=== PATIENT | female | born 1990 | race Caucasian/White ===

== ENCOUNTER 2016-08-07 02:54 | Inpatient (IN) | payer OTHER ==
[2016-08-07] VITALS (21 sets, daily range): BP systolic 103–167; BP diastolic 51–87
[~2016-08-07] VITALS: Ht 162.6 cm; Wt 75.0 kg
[2016-08-07] MEDS ORDERED: LR 1,000 ML IV SCH (03:20)
[2016-08-07] MEDS ORDERED: LACTATED RINGER'S 1000 ML IV STA (03:20)
[2016-08-07] MEDS ORDERED: FENTANYL 2MCG/ML ROPIVACAINE 0.2% NACL 250 ML CADD As Ordered ONE (03:52)
[2016-08-07 04:08] LABS: MEAN CORPUSCULAR HEMOGLOBIN 26.7 pg (27.0-33.0); MEAN CORPUSCULAR VOLUME 80.9 fl (80.0-96.0); RED CELL DISTRIBUTION WIDTH 14.1 % (11.5-14.5); WHITE BLOOD COUNT 15.2 K/mm3 (4.0-10.0)
[2016-08-07] MEDS ORDERED: PREN1TAB11 PO (04:32)
[2016-08-07] MEDS ORDERED: NALOXONE INJ 0.4 MG/1 ML VIAL (J2310) IV PRN (05:30)
[2016-08-07] MEDS ORDERED: ONDANSETRON 4MG/2ML VIAL (J2405) IV PRN (05:30)
[2016-08-07] MEDS ORDERED: diphenhydrAMINE INJ 50MG/ML VIAL (J1200) IV PRN (05:30)
[2016-08-07] MEDS ORDERED: REFRIGERATOR IV KEYS XX PRN (05:30)
[2016-08-07] MEDS ORDERED: LACTATED RINGER'S 1000 ML IV PRN (05:30)
[2016-08-07] MEDS ORDERED: EPIDURAL/PCA KEYS XX PRN (05:30)
[2016-08-07] MEDS ORDERED: EPIDURAL COMMENT XX SCH (05:30)
[2016-08-07] MEDS ORDERED: FENTANYL/ROPIVACAINE/NACL CADD 250 ML EPIDURAL SCH (05:30)
[2016-08-07] MEDS ORDERED: ePHEDrine SULFATE 25 MG/5 ML(5MG/ML) SYRINGE IV PRN (05:30)
[2016-08-07] MEDS ORDERED: OXYTOCIN 30 UNITS IN 0.9% NaCl 500ML IV BAG (J2590) As Ordered ONE (09:25)
--- NOTE | 2016-08-07 09:45 | IPNPDOC ---
Text Note Date of Service The patient was seen on 08/07/16 at 09:43. NOTE SBAR from Dr Ramirez at 0830. SROM, uncomplicated and admission thus far. Chart reviewed. VSS NST Cat 1 with mod leon Cx C/C/+2/OA a/p: Start pushing. Sessions Marichuy KNOWLES, I+O VSMarichuy I+O Laboratory Tests 08/07/16 03:34 Red Blood Count 4.47, Mean Corpuscular Volume 80.9, Mean Corpuscular Hemoglobin 26.7 L, Mean Corpuscular Hemoglobin Concent 33.0, Red Cell Distribution Width 14.1 Vital Signs Date Time Temp Pulse Resp B/P Pulse Ox O2 Delivery O2 Flow Rate FiO2 08/07/16 09:02 98.0 78 18 120/56 Non-Rebreather 08/07/16 05:27 100 SESSIONS,ED Allan MD Aug 07, 2016 09:45
[2016-08-07] MEDS ORDERED: OXYTOCIN DRIP 30 UNITS in APPROPRIATE DILUENT 1 EA IV SCH (13:12)
[2016-08-07] MEDS ORDERED: MEASLES,MUMPS,RUBELLA VACCINE INJ (MMR-II) (90707) SC SCH (13:15)
[2016-08-07] MEDS ORDERED: RHOGAM 300 MCG (1500 IU) INJ (J2790) IM SCH (13:15)
[2016-08-07] MEDS ORDERED: METOCLOPRAMIDE INJ 10MG/2ML VIAL (J2765) IV PRN (13:15)
[2016-08-07] MEDS ORDERED: DIBUCAINE 1% OINTMENT 30GM TOP PRN (13:15)
--- NOTE | 2016-08-07 13:33 | DNPDOC ---
Delivery Note Delivery Note DATE OF DELIVERY: Aug 07, 2016 at 03:09 PREDELIVERY DIAGNOSIS: [38]-[3]/7 weeks' gestation and labor. POST DELIVERY DIAGNOSIS: Delivered. PROCEDURE: [Spontaneous vaginal delivery after 2 vacuum pop-offs (vacuum failed) ] [employer] OPERATOR: [Sessions] ANESTHESIA: [epidural]. ESTIMATED BLOOD LOSS: [300] mL. FINDINGS: [7] pound [3] ounce [female] , Score [8]/[9], nuchal cord times [2]. DELIVERY SUMMARY: Patient was admitted to labor and delivery for SROM and progressed without complication to C/C/+2 and pushed for 3 hours with mom- confessed exhaustion. Station +3-+4 with pushing. Epidural working well. D/ W her options of continued pushing for 1 more hour vs outlet vacuum with risks of laceration, lacs/bruising of the head, failure and possible need for and she elected for vacuum. Slight asynclitism noted and I believed the to be OP but was unsure. Vacuum placed midsagitally 2 cm from the fontanelle and excellent descent with each set of ctx's however a pop- off noted at the end of first and second set of pushes. Vacuum abandoned. FHT reassuring throughout. ML Episiotomy cut, very short perineal body. I tried to do a modified Ritgen but there was no room for me to get my fingers inbetween the post vtx and the bony sacrum. Cont'd to push and del'd the vtx, noted to be straight OP. No delay of the shoulders. To abdomen with spont cry and good tone. Cord clamped X2 and cut by FOB. Chignon c/w OP baby and slightly off-center (asynclitic). Epis repaired in standard fashion with 3-0 vicryl, no extension, rectal sphincter intact, but the entire skin of the perineum involved down to the anal verge. Good cosmesis and hemostasis. Sessions MD SCHROEDER,ED Allan MD Aug 07, 2016 13:33
[2016-08-07] MEDS: IBUPROFEN 800 MG TAB PO PRN ×2 (13:48→22:33)
[2016-08-07] MEDS: ACETAMINOPHEN TAB 650MG DOSE (2X325MG) PO PRN (19:46)
[2016-08-07] MEDS: DOCUSATE SODIUM 100 MG CAP PO SCH (19:46)
[2016-08-08] MEDS: IBUPROFEN 800 MG TAB PO PRN ×2 (06:12→14:39)
[2016-08-08 06:23] VITALS: BP 136/74
--- NOTE | 2016-08-08 07:42 | IPNPDOC ---
Text Note Date of Service The patient was seen on 08/08/16 at 07:41. NOTE PPD1 Prog note Pt states feeling well, breast feeding challenging but they're doing OK, pain controlled. Bonding. Voiding and eating and ambulatory. VSS CTAB RRR Ut at U-2, firm LE no CCE a/p: Doing well, cont routine PP care. Sessions Marichuy KNOWLES, I+O VSMarichuy I+O Vital Signs Date Time Temp Pulse Resp B/P Pulse Ox O2 Delivery O2 Flow Rate FiO2 08/08/16 06:23 97.2 71 18 136/74 08/07/16 14:38 Room Air 08/07/16 05:27 100 I&O- Last 24 Hours up to 6 AM 08/08/16 06:00 Intake Total 1000 ml Output Total 1350 ml Balance -350 ml ALEXANDRE,ED Allan MD Aug 08, 2016 07:42
[2016-08-08] MEDS: PRENATAL VITAMIN TAB PO SCH (08:02)
[2016-08-08] MEDS: DOCUSATE SODIUM 100 MG CAP PO SCH ×2 (08:02→20:29)
[2016-08-08] MEDS: ACETAMINOPHEN TAB 650MG DOSE (2X325MG) PO PRN ×2 (08:13→20:30)
[2016-08-08 18:00] VITALS: BP 118/65
[2016-08-09 05:44] VITALS: BP 102/55
--- NOTE | 2016-08-09 06:16 | IPNPDOC ---
Text Note Date of Service The patient was seen on 08/09/16 at 06:16. NOTE PPD2 Prog note States feeling well. No complaints. Pain controlled. Breast feeding well. VB slowing. Ambulatory and voiding well. No N/V/CP/SOB/LP. VSS Ut at U-2/firm LE no CCE a/p: Doing well. d/c today, see d/c summary Sessions VS,Marichuy, I+O VSMarichuy, I+O Vital Signs Date Time Temp Pulse Resp B/P Pulse Ox O2 Delivery O2 Flow Rate FiO2 08/09/16 05:44 97.0 77 16 102/55 08/07/16 14:38 Room Air 08/07/16 05:27 100 SESSIONS,ED Allan MD Aug 09, 2016 06:16
--- NOTE | 2016-08-09 06:22 | DS.PDOC ---
Discharge Summary General Date of Admission Aug 07, 2016 at 03:09 Date of Discharge Discharge Summary COMPLICATIONS/CHIEF COMPLAINT: LABOR ADMISSION DIAGNOSES: 1. .SROM, labor DISCHARGE DIAGNOSES: 1. JERI, after failed vacuum HOSPITAL COURSE: Patient was admitted for SROM and progressed to complete and pushed for >3 hours. A vacuum was placed with her consent and good descent noted but 2 pop-offs occurred and the vacuum was abandoned. Delivered the female in good shape in O.P. presentation. Episiotomy with no extension also needed. Uncomplicated delivery and course. DISCHARGE MEDICATIONS: Motrin, Tylenol, Colace, Lanolin, Nor QDay PHYSICAL EXAMINATION ON DISCHARGE: see prog note from this AM VITAL SIGNS: Please see below. LABORATORY DATA: Please see below. DISCHARGE CONDITION: stable DISPOSITION: to home ACTIVITY: Nothing in the vagina for 6 weeks. Regular diet. DISCHARGE PLAN AND INSTRUCTIONS: follow up at 6 week visit Sessions Vital Signs/I&Os Vital Signs Date Time Temp Pulse Resp B/P Pulse Ox O2 Delivery O2 Flow Rate FiO2 08/09/16 05:44 97.0 77 16 102/55 08/07/16 14:38 Room Air 08/07/16 05:27 100 Medications Miscellaneous Medications ( Vitamin 27-0.8 mg) 1 Tab Tab 1 TAB PO Allergies Coded Allergies: No Known Allergies (Unverified , 08/07/16) SESSIONS,ED Allan MD Aug 09, 2016 06:22
[2016-08-09] MEDS ORDERED: COLA100C PO (07:29)
[2016-08-09] MEDS ORDERED: IBUP-1114 PO (07:31)
[2016-08-09] MEDS ORDERED: ACET50TA PO (07:31)
[2016-08-09] MEDS: DOCUSATE SODIUM 100 MG CAP PO SCH (09:09)
[2016-08-09] MEDS: IBUPROFEN 800 MG TAB PO PRN (09:09)
[2016-08-09] MEDS: PRENATAL VITAMIN TAB PO SCH (09:09)
== END 2016-08-09 13:00 | disposition home or self-care (01) | DRG 775 ==
LOC: M LDO 02:54 → M LDI 03:09 → M OBS 15:42
PROVIDERS: ADMIT Obstetrics & Gynecology; ATTEND Obstetrics & Gynecology
PROC: 10E0XZZ Delivery of Products of Conception, External Approach (ICD-10-PCS; principal; 2016-08-07)
PROC: 0W8NXZZ Division of Female Perineum, External Approach (ICD-10-PCS; 2016-08-07)
DX: O75.81 Maternal exhaustion complicating labor and delivery (principal); Z3A.38 38 weeks gestation of pregnancy; O32.8XX0 Maternal care for other malpresentation of fetus, not applicable or unspecified; O66.5 Attempted application of vacuum extractor and forceps; Z37.0 Single live birth